=== PATIENT | female | born 1985 | race Caucasian/White ===

== ENCOUNTER 2019-12-24 16:37 | Emergency (ER) | payer BC, MEDICAID, OTHER, SELFPAY ==
[~2019-12-24] VITALS: Ht 160 cm; Wt 63.6 kg
--- NOTE | 2019-12-24 17:04 | NUR ---
PT TO ED AFTER HAVING "3 SEIZURES IN THE LAST FEW DAYS", PT DESCRIBES CONVULSING AND BECOMING AWARE TOWARD THE END AND FEELING VERY FATIGUED AFTER. PT PLACED ON SEIZURE PRECAUTIONS. CALL LIGHT WITHIN REACH.
[2019-12-24 17:55] LABS: BASOPHILS # (AUTO) 0.02 x10^3/uL (0-0.1); BASOPHILS % (AUTO) 0 % (0-1); EOSINOPHILS # (AUTO) 0.08 x10^3/uL (0-0.4); EOSINOPHILS % (AUTO) 1 % (1-7); LYMPHOCYTES # (AUTO) 1.66 x10^3/uL (1-3.4); LYMPHOCYTES % (AUTO) 23 % (22-44); MD NO; MEAN CORPUSCULAR HEMOGLOBIN 30.1 pg (27.0-34.8); MEAN CORPUSCULAR HGB CONC 33.2 g/dL (32.4-35.8); MEAN CORPUSCULAR VOLUME 90.6 fL (80-100); MONOCYTES # (AUTO) 0.61 x10^3/uL (0.2-0.8); MONOCYTES % (AUTO) 9 % (2-9); NEUTROPHILS # (AUTO) 4.76 x10^3/uL (1.8-6.8); NEUTROPHILS % (AUTO) 67 % (42-75); PLATELET COUNT 185 x10^3/uL (130-400); RED BLOOD COUNT 4.43 x10^6/uL (3.82-5.3); RED CELL DISTRIBUTION WIDTH 12.6 % (9.6-15.2)
[2019-12-24 18:00] LABS: ALANINE AMINOTRANSFERASE 20 U/L (12-78); ALBUMIN 3.8 g/dL (3.4-5.0); ANION GAP 7 mmol/L (5-15); CALCIUM 8.4 mg/dL (8.5-10.1); CHLORIDE 111 mmol/L (98-107)
[2019-12-24 18:02] LABS: ALKALINE PHOSPHATASE 48 U/L (45-117); BILIRUBIN,TOTAL 0.8 mg/dL (0.2-1.0); CREATININE 0.66 mg/dL (0.55-1.02); TOTAL PROTEIN 7.4 g/dL (6.4-8.2)
[2019-12-24 18:15] LABS: MICROSCOPIC NOT IND
[2019-12-24 19:58] VITALS: BP 100/55
--- NOTE | 2019-12-24 19:58 | NUR ---
PT RESTING IN [facility]. UP FOR RECHECK VSS. NAD.
[2019-12-24] MEDS ORDERED: LEVETIRACETAM 500 MG TABLET ONE (20:17)
[2019-12-24] MEDS ORDERED: LEVETIRACETAM 500 MG TABLET PO ONE (20:30)
== END 2019-12-24 20:23 | disposition home or self-care (01) ==
LOC: ED 18:28
DX: R56.9 Unspecified convulsions (principal); R51 Headache; R32 Unspecified urinary incontinence; R94.31 Abnormal electrocardiogram [ECG] [EKG]; R11.0 Nausea; Z90.710 Acquired absence of both cervix and uterus
CPT/HCPCS: 36415; 70450; 80053; 81003; 85025; 93005; 99285

== ENCOUNTER → 2020-06-21 | Outpatient (CLI) | payer BC, OTHER | END | disposition home or self-care (01) | LOC: CARD 12:44 | PROVIDERS: ATTEND Psychiatry & Neurology Neurology | DX: G40.209 Localization-related (focal) (partial) symptomatic epilepsy and epileptic syndromes with complex partial seizures, not intractable, without status epilepticus (principal) | CPT/HCPCS: 95819 ==